=== PATIENT | male | born 1960 | race African-American/Black ===

== ENCOUNTER 2020-03-23 17:32 | Emergency (ER) | payer OTHER ==
[~2020-03-23] VITALS: Ht 177.8 cm; Wt 83.0 kg
[2020-03-23 18:30] LABS: BASOPHILS % 0.3 % (0.0-2.0); EOSINOPHILS % 0.7 % (0.0-5.0); HEMATOCRIT. 41.8 % (42.0-52.0); HEMOGLOBIN. 13.7 g/dL (14.0-18.0); LYMPHOCYTES % 7.7 % (20.0-50.0); MEAN CORPUSCULAR HEMOGLOBIN 28.2 pg (28.0-32.0); MEAN CORPUSCULAR VOLUME 85.7 fL (80.0-94.0); MEAN PLATELET VOLUME 9.2 fl (7.4-10.4); MONOCYTES % 5.8 % (2.0-8.0); NEUTROPHILS % 85.5 % (40.0-76.0); PLATELET 225 x1000/uL (130-400); RED BLOOD CELL COUNT 4.88 mill/uL (4.7-6.1); RED CELL DISTRIBUTION WIDTH 13.8 % (11.6-14.6)
[2020-03-23 18:32] LABS: CHLORIDE 108 mEq/L (98-107)
[2020-03-23 18:39] LABS: ETHANOL BLOOD < 10 mg/dL
[2020-03-23 20:14] VITALS: BP 126/73
== END 2020-03-23 21:05 | disposition home or self-care (01) ==
LOC: ER 17:39
DX: R55 Syncope and collapse (principal); F12.10 Cannabis abuse, uncomplicated; I10 Essential (primary) hypertension; Z98.890 Other specified postprocedural states
CPT/HCPCS: 36415; 71045; 80053; 80320; 84484; 85025; 93005; 99285; G0480

== ENCOUNTER 2024-06-06 18:53 | Emergency (ER) | payer MEDICAID, OTHER ==
[~2024-06-06] VITALS: Ht 188 cm; Wt 90.0 kg
[2024-06-06 19:00] VITALS: TEMP 98.3; O2SAT 99
[2024-06-06 19:26] VITALS: BP 138/74; PULSE 78; RESP 16; O2SAT 99
== END 2024-06-06 19:25 | disposition home or self-care (01) ==
LOC: ER 19:11
DX: M20.092 Other deformity of left finger(s) (principal); F12.10 Cannabis abuse, uncomplicated; F41.9 Anxiety disorder, unspecified; F31.9 Bipolar disorder, unspecified
CPT/HCPCS: 99283